=== PATIENT | female | born 1985 | race Two or more races ===

== ENCOUNTER 2020-08-31 17:29 | Emergency (ER) | payer MEDICAID ==
[~2020-08-31] VITALS: Ht 165.1 cm; Wt 83.1 kg
[2020-08-31 17:33] VITALS: BP 171/107
[2020-08-31 17:58] LABS: BASOPHILS % (AUTO) 1 % (0-1); EOSINOPHILS % (AUTO) 2 % (1-7); LYMPHOCYTES % (AUTO) 48 % (22-44); MEAN CORPUSCULAR HEMOGLOBIN 27.8 pg (27.0-34.8); MEAN CORPUSCULAR HGB CONC 33.1 g/dL (32.4-35.8); MEAN PLATELET VOLUME 7.7 fL (7.4-10.4); MONOCYTES % (AUTO) 6 % (2-9); NEUTROPHILS % (AUTO) 43 % (42-75); PLATELET COUNT 351 x10^3/uL (130-400); RED BLOOD COUNT 3.99 x10^6/uL (3.82-5.3); RED CELL DISTRIBUTION WIDTH 14.9 % (9.6-15.2)
[2020-08-31 18:08] LABS: ANION GAP 8 mmol/L (5-15); CALCIUM 9.4 mg/dL (8.5-10.1); CHLORIDE 106 mmol/L (98-107); CREATININE 0.84 mg/dL (0.55-1.02)
[2020-08-31 18:17] LABS: MD SCAN
[2020-08-31] MEDS ORDERED: IBUPROFEN 800 MG TABLET PO ONE (22:00)
== END 2020-08-31 22:12 | disposition home or self-care (01) ==
LOC: ED 21:45
DX: S00.31XA Abrasion of nose, initial encounter (principal); R07.89 Other chest pain; F41.1 Generalized anxiety disorder; Y04.0XXA Assault by unarmed brawl or fight, initial encounter; Y92.89 Other specified places as the place of occurrence of the external cause; Y99.8 Other external cause status; Y93.89 Activity, other specified
CPT/HCPCS: 36415; 71046; 80048; 85025; 93005; 99285